=== PATIENT | male | born 1975 | race Two or more races ===

== ENCOUNTER 2019-08-08 16:49 | Emergency (ER) | payer SELFPAY ==
[~2019-08-08] VITALS: Ht 165.1 cm; Wt 104.3 kg
[2019-08-08 16:50] VITALS: BP 104/45
== END 2019-08-08 17:32 | disposition home or self-care (01) ==
LOC: ER 16:52
DX: U07.1 COVID-19 (principal); J02.9 Acute pharyngitis, unspecified
CPT/HCPCS: U0003